=== PATIENT | female | born 1950 | race African-American/Black ===

== ENCOUNTER → 2017-03-17 | Outpatient (CLI) | payer BC ==
[2017-03-17 06:51] LABS: BASOPHILS % 0.4 % (0.0-2.0); EOSINOPHILS % 3.8 % (0.0-5.0); HEMATOCRIT. 33.5 % (36.0-48.0); HEMOGLOBIN. 11.1 g/dL (12.0-16.0); LYMPHOCYTES % 62.1 % (20.0-50.0); MEAN CORPUSCULAR HEMOGLOBIN 27.1 pg (28.0-32.0); MEAN PLATELET VOLUME 7.9 fl (7.4-10.4); MONOCYTES % 6.4 % (2.0-8.0); NEUTROPHILS % 27.3 % (40.0-76.0); PLATELET 233 x1000/uL (130-400); RED BLOOD CELL COUNT 4.08 mill/uL (4.2-5.4); RED CELL DISTRIBUTION WIDTH 13.4 % (11.6-14.6)
[2017-03-17 07:35] LABS: CARBON DIOXIDE 31 mEq/L (21-32); CHLORIDE 99 mEq/L (98-107)
[2017-03-17 07:40] LABS: HDL CHOLESTEROL 75 mg/dL (40-59); LDL CHOLESTEROL 79 mg/dL (5-100)
== END | disposition home or self-care (01) ==
LOC: LAB 06:17
PROVIDERS: ATTEND Internal Medicine Geriatric Medicine
DX: I11.9 Hypertensive heart disease without heart failure (principal); R73.03 Prediabetes; M19.90 Unspecified osteoarthritis, unspecified site
CPT/HCPCS: 36415; 80053; 80061; 82306; 83036; 85025

== ENCOUNTER → 2017-10-18 | Outpatient (CLI) | payer BC ==
[2017-10-18 08:18] LABS: BASOPHILS % 0.4 % (0.0-2.0); EOSINOPHILS % 4.2 % (0.0-5.0); HEMATOCRIT. 34.6 % (36.0-48.0); HEMOGLOBIN. 11.4 g/dL (12.0-16.0); LYMPHOCYTES % 48.4 % (20.0-50.0); MEAN CORPUSCULAR HEMOGLOBIN 27.1 pg (28.0-32.0); MEAN CORPUSCULAR VOLUME 82.2 fL (81.0-99.0); MEAN PLATELET VOLUME 7.6 fl (7.4-10.4); MONOCYTES % 7.3 % (2.0-8.0); NEUTROPHILS % 39.7 % (40.0-76.0); PLATELET 245 x1000/uL (130-400); RED BLOOD CELL COUNT 4.21 mill/uL (4.2-5.4); RED CELL DISTRIBUTION WIDTH 13.4 % (11.6-14.6)
[2017-10-18 08:58] LABS: CHLORIDE 100 mEq/L (98-107)
[2017-10-18 09:07] LABS: LDL CHOLESTEROL 87 mg/dL (5-100)
[2017-10-18 09:08] LABS: HDL CHOLESTEROL 75 mg/dL (40-59)
[2017-10-18 09:09] LABS: TOTAL IRON BINDING CAPACITY 420 ug/dL (250-450)
[2017-10-18 09:23] LABS: FOLIC ACID (FOLATE) SERUM >20 ng/mL ng/mL (>5.38)
[2017-10-18 09:34] LABS: VITAMIN B12 SERUM 869 pg/mL (211-911)
[2017-10-18 11:34] LABS: FERRITIN 389 ng/mL (10-291)
[2017-10-20 13:07] LABS: VITAMIN D 1-25 DIHYDROXY 48.9 pg/mL (19.9-79.3)
[2017-10-24 13:09] LABS: HGB A 97.4 % (96.4-98.8); HGB A2 2.6 % (1.8-3.2); HGB SOLUBILITY Negative (Negative)
== END | disposition home or self-care (01) ==
LOC: LAB 07:33
PROVIDERS: ATTEND Internal Medicine Geriatric Medicine
DX: D64.9 Anemia, unspecified (principal); I11.9 Hypertensive heart disease without heart failure; M19.90 Unspecified osteoarthritis, unspecified site; R73.03 Prediabetes; R79.89 Other specified abnormal findings of blood chemistry; Z76.89 Persons encountering health services in other specified circumstances
CPT/HCPCS: 36415; 80053; 80061; 82607; 82652; 82728; 82746; 83021; 83036; 83540; 83550; 84443; 85025; 85660